=== PATIENT | male | born 1965 | race Caucasian/White ===

== ENCOUNTER 2023-07-01 15:50 | Inpatient (IN) | payer MEDICAID ==
[2023-07-01] MEDS ORDERED: Alum Hydroxide/Mag Hydroxide 30 ML, Lidocaine 2% 15 ML PO ONE ×2 (16:17)
[2023-07-01] MEDS ORDERED: Sodium Chloride 0.9% 1,000 ML IV ONE (16:25)
[2023-07-01] MEDS ORDERED: diphenhydrAMINE 50 MG/ML SDV IVPUSH ONE (16:26)
[2023-07-01] MEDS ORDERED: Ondansetron 4 MG/2 ML SDV IVPUSH ONE (16:26)
[2023-07-01] MEDS ORDERED: Ketorolac 30 MG/ML SDV IVPUSH ONE (16:26)
[2023-07-01] MEDS ORDERED: Acetaminophen 500 MG Tab PO ONE (16:34)
[2023-07-01] MEDS ORDERED: Acetaminophen 500 MG Tab ONE (16:35)
[2023-07-01 16:39] LABS: BLOOD UREA NITROGEN,BUN 15 mg/dL (7-18); CALCIUM 9.8 mg/dL (8.6-10.2); CARBON DIOXIDE,CO2 31 mmol/L (21-32); CHLORIDE,CL 97 mmol/L (100-110); ESTIMATED GFR 88 mL/min (>60); GLUCOSE RANDOM 101 mg/dL (80-116); POTASSIUM,K 4.5 mmol/L (3.5-5.3); SODIUM,NA 135 mmol/L (135-145)
[2023-07-01 16:45] LABS: HEMATOCRIT 48.7 % (38.3-50.1); HEMOGLOBIN 16.6 g/dL (12.9-17.7); MEAN CORPUSCULAR HEMOGLOBIN 31.4 pg (27.0-33.3); MEAN CORPUSCULAR HGB CONC 34.1 g/dL (28.7-35.3); MEAN CORPUSCULAR VOLUME 92.3 fL (80.8-98.7); MEAN PLATELET VOLUME 8.2 fL (6.7-11.0); PLATELET COUNT,PLT 236 x10(3)uL (117-477); RED BLOOD CELL COUNT 5.28 x10(6)uL (3.90-5.90); RED CELL DISTRIBUTION WIDTH 14.1 % (12.4-15.0); WHITE BLOOD CELL COUNT,WBC 6.3 x10-3/uL (3.2-10.1)
[2023-07-01 16:50] LABS: A/G RATIO 0.6; ALKALINE PHOSPHATASE 224 IU/L (56-112); BILIRUBIN TOTAL 2.8 mg/dL (0.1-1.3); PROTEIN TOTAL,TP 7.9 g/dL (6.0-8.0)
[2023-07-01 16:51] LABS: ALANINE AMINOTRANSFERASE,ALT 307 U/L (12-36); ASPARTATE AMNIOTRANSFERASE,AST 469 IU/L (5-25); TROPONIN I < 4.0 pg/mL (4.0-60.3)
[2023-07-01 16:52] LABS: C-REACTIVE PROTEIN 6.83 mg/dL (<0.33); LIPASE > 1500 U/L (16-77)
[2023-07-01] MEDS ORDERED: Iopamidol 755 Mg/ML 100 ML Bottle IV ONE (17:00)
[2023-07-01 17:08] LABS: INFLUENZA A NAA NEGATIVE (NEGATIVE); INFLUENZA B NAA NEGATIVE (NEGATIVE); RESPIRATORY SYNCYTIAL VIR NAA NEGATIVE (NEGATIVE)
[2023-07-01 17:12] LABS: LYMPHOCYTES PERCENT MAN 5 % (13-37); MONOCYTES PERCENT MAN 3 % (4-12); SEG NEUTROPHILS PERCENT MAN 92 % (46-82)
[2023-07-01 17:14] LABS: BILIRUBIN,URINE NEGATIVE (NEGATIVE); GLUCOSE,URINE NORMAL (NORMAL); KETONES,URINE NEGATIVE (NEGATIVE); LEUKOCYTE ESTERASE,URINE NEGATIVE (NEGATIVE); NITRITE,URINE NEGATIVE (NEGATIVE); OCCULT BLOOD,URINE NEGATIVE (NEGATIVE); PROTEIN,URINE NEGATIVE (NEGATIVE); UROBILINOGEN,URINE 4 mg/dL (NEGATIVE)
[2023-07-01 17:22] LABS: APPEARANCE,URINE CLEAR (CLEAR); BACTERIA,URINE FEW (NS); COLOR,URINE YELLOW (YELLOW); RBC,URINE 0-5 (0-5); SQUAMOUS EPITHELIAL CELLS,UR FEW (NS,R,O); WBC,URINE 0-5 (0-5)
[2023-07-01 17:51] LABS: CORONAVIRUS COVID-19 NAA NEGATIVE (NEGATIVE)
[2023-07-01 17:56] LABS: BILIRUBIN DIRECT 2.12 mg/dL (0.10-0.20); BILIRUBIN INDIRECT 0.7 mg/dL (0.0-1.0); BILIRUBIN TOTAL 2.8 mg/dL (0.1-1.3)
[2023-07-01] MEDS ORDERED: Sodium Chloride 0.9% 1,000 ML IV SCH (18:00)
[2023-07-01] MEDS ORDERED: Morphine 4 MG/ML VIAL IVPUSH ONE (18:48)
[2023-07-01] MEDS ORDERED: Morphine 2 MG/ML SYRINGE IVPUSH ONE (18:53)
[2023-07-01] MEDS: D5 1/2 NS w/ 20 mEq/L KCl 1,000 ML IV SCH (19:01)
[2023-07-01] MEDS ORDERED: Zolpidem 10 MG Tab PO PRN (19:11)
[2023-07-01] MEDS ORDERED: Morphine 2 MG/ML SYRINGE IVPUSH PRN (19:11)
[2023-07-01] MEDS ORDERED: Ondansetron 4 MG/2 ML SDV IV PRN (19:11)
[2023-07-01] MEDS ORDERED: Pantoprazole 40 MG Vial IVPUSH ONE (19:11)
[2023-07-01] MEDS ORDERED: Sodium Chloride 0.9% 10 ML Syringe FLUSH PRN (20:00)
[2023-07-01] MEDS: Ketorolac 30 MG/ML SDV IVPUSH SCH (21:36)
[2023-07-01] MEDS: Enoxaparin 40 MG/0.4 ML Syringe SUBCUT SCH (21:36)
[2023-07-01] MEDS ORDERED: Ketorolac 30 MG/ML SDV IM SCH (22:30)
[2023-07-02] MEDS: Ketorolac 30 MG/ML SDV IVPUSH SCH ×3 (03:33→16:30)
[2023-07-02] MEDS: D5 1/2 NS w/ 20 mEq/L KCl 1,000 ML IV SCH (03:35)
[2023-07-02 06:23] LABS: HEMATOCRIT 41.3 % (38.3-50.1); MEAN CORPUSCULAR HEMOGLOBIN 31.5 pg (27.0-33.3); MEAN CORPUSCULAR VOLUME 92.7 fL (80.8-98.7); MEAN PLATELET VOLUME 8.5 fL (6.7-11.0); PLATELET COUNT,PLT 176 x10(3)uL (117-477); RED BLOOD CELL COUNT 4.46 x10(6)uL (3.90-5.90); WHITE BLOOD CELL COUNT,WBC 11.1 x10-3/uL (3.2-10.1)
[2023-07-02 06:29] LABS: BLOOD UREA NITROGEN,BUN 12 mg/dL (7-18); CALCIUM 8.5 mg/dL (8.6-10.2); CARBON DIOXIDE,CO2 30 mmol/L (21-32); CHLORIDE,CL 105 mmol/L (100-110); GLUCOSE RANDOM 119 mg/dL (80-116); MAGNESIUM 1.6 mg/dL (1.8-2.5); POTASSIUM,K 4.6 mmol/L (3.5-5.3); SODIUM,NA 139 mmol/L (135-145)
[2023-07-02 06:47] LABS: EST CRCL DRUG DOSING (CG) 78.85 mL/min; ESTIMATED GFR 88 mL/min (>60)
[2023-07-02 06:58] LABS: BAND PERCENT MAN 10 % (0-6); LYMPHOCYTES PERCENT MAN 7 % (13-37); METAMYELOCYTE PERCENT MAN 2 % (0-0); MONOCYTES PERCENT MAN 3 % (4-12); SEG NEUTROPHILS PERCENT MAN 78 % (46-82)
[2023-07-02] MEDS ORDERED: Magnesium Sulfate/Water 2 GM in Premix Bag 1 BAG IV ONE (08:26)
[2023-07-02 09:02] LABS: ALBUMIN 2.2 g/dL (3.5-5.2); BILIRUBIN DIRECT 3.46 mg/dL (0.10-0.20); BILIRUBIN TOTAL 4.2 mg/dL (0.1-1.3); PROTEIN TOTAL,TP 6.2 g/dL (6.0-8.0)
[2023-07-02] MEDS: Pantoprazole 40 MG Vial IVPUSH SCH (09:12)
[2023-07-02 10:33] LABS: INR 1.29 (1.00-1.24); PROTHROMBIN TIME 13.2 sec (9.0-11.1)
[2023-07-02] MEDS: Sodium Chloride 0.9% 1,000 ML IV SCH (10:50)
[2023-07-02] MEDS ORDERED: Nicotine 14 MG/24 Hr Patch TRDERM ONE (11:47)
[2023-07-02] MEDS: Enoxaparin 40 MG/0.4 ML Syringe SUBCUT SCH (21:47)
[2023-07-02] MEDS: Ketorolac 30 MG/ML SDV IVPUSH PRN (22:14)
[2023-07-03] MEDS: Sodium Chloride 0.9% 1,000 ML IV SCH ×2 (00:24→08:50)
[2023-07-03] MEDS: Ketorolac 30 MG/ML SDV IVPUSH PRN ×3 (05:47→22:01)
[2023-07-03 06:31] LABS: BASOPHILS PERCENT AUTO 0.5 % (0.3-3.8); EOSINOPHILS ABSOLUTE AUTO 0.1 x10-3/uL (0.0-0.6); HEMATOCRIT 37.8 % (38.3-50.1); HEMOGLOBIN 13.2 g/dL (12.9-17.7); LYMPHOCYTES ABSOLUTE AUTO 0.9 x10-3/uL (0.5-4.5); LYMPHOCYTES PERCENT AUTO 12.2 % (15.8-45.3); MEAN CORPUSCULAR HEMOGLOBIN 32.2 pg (27.0-33.3); MEAN CORPUSCULAR HGB CONC 34.9 g/dL (28.7-35.3); MEAN CORPUSCULAR VOLUME 92.4 fL (80.8-98.7); MEAN PLATELET VOLUME 8.3 fL (6.7-11.0); MONOCYTES ABSOLUTE AUTO 0.4 x10-3/uL (0.0-1.2); MONOCYTES PERCENT AUTO 5.2 % (5.5-15.2); NEUTROPHILS ABSOLUTE AUTO 6.1 x10-3/uL (1.7-6.9); NEUTROPHILS PERCENT AUTO 81.1 % (40.3-71.8); PLATELET COUNT,PLT 174 x10(3)uL (117-477); RED BLOOD CELL COUNT 4.09 x10(6)uL (3.90-5.90); RED CELL DISTRIBUTION WIDTH 14.6 % (12.4-15.0); WHITE BLOOD CELL COUNT,WBC 7.6 x10-3/uL (3.2-10.1)
[2023-07-03 06:39] LABS: BILIRUBIN DIRECT 1.4 mg/dL (0.10-0.20); BILIRUBIN INDIRECT 0.6 mg/dL (0.0-1.0)
[2023-07-03 06:45] LABS: A/G RATIO 0.5; ALBUMIN 1.9 g/dL (3.5-5.2); ALKALINE PHOSPHATASE 120 IU/L (56-112); BLOOD UREA NITROGEN,BUN 10 mg/dL (7-18); BUN/CREATININE RATIO 16.7 (9-20); CALCIUM 8.2 mg/dL (8.6-10.2); CARBON DIOXIDE,CO2 25 mmol/L (21-32); CHLORIDE,CL 103 mmol/L (100-110); CREATININE 0.6 mg/dL (0.70-1.30); EST CRCL DRUG DOSING (CG) 131.42 mL/min; ESTIMATED GFR 113 mL/min (>60); GLUCOSE RANDOM 81 mg/dL (80-116); POTASSIUM,K 3.4 mmol/L (3.5-5.3); PROTEIN TOTAL,TP 5.7 g/dL (6.0-8.0); SODIUM,NA 134 mmol/L (135-145)
[2023-07-03 06:53] LABS: ALANINE AMINOTRANSFERASE,ALT 244 U/L (12-36)
[2023-07-03 06:54] LABS: ASPARTATE AMNIOTRANSFERASE,AST 206 IU/L (5-25)
[2023-07-03] MEDS: Pantoprazole 40 MG Vial IVPUSH SCH (08:53)
[2023-07-03] MEDS: NS + KCl 20mEq/L 1,000 ML IV SCH (17:03)
[2023-07-03] MEDS: Enoxaparin 40 MG/0.4 ML Syringe SUBCUT SCH (21:33)
[2023-07-04] MEDS: NS + KCl 20mEq/L 1,000 ML IV SCH (02:37)
[2023-07-04] MEDS: Ketorolac 30 MG/ML SDV IVPUSH PRN ×2 (05:40→12:18)
[2023-07-04 06:37] LABS: BASOPHILS ABSOLUTE AUTO 0.1 x10-3/uL (0.0-0.3); BASOPHILS PERCENT AUTO 0.7 % (0.3-3.8); EOSINOPHILS ABSOLUTE AUTO 0.1 x10-3/uL (0.0-0.6); EOSINOPHILS PERCENT AUTO 0.9 % (0.1-6.8); HEMATOCRIT 38.4 % (38.3-50.1); HEMOGLOBIN 13.4 g/dL (12.9-17.7); LYMPHOCYTES ABSOLUTE AUTO 0.8 x10-3/uL (0.5-4.5); LYMPHOCYTES PERCENT AUTO 11.8 % (15.8-45.3); MEAN CORPUSCULAR HEMOGLOBIN 32.3 pg (27.0-33.3); MEAN CORPUSCULAR HGB CONC 34.9 g/dL (28.7-35.3); MEAN CORPUSCULAR VOLUME 92.6 fL (80.8-98.7); MEAN PLATELET VOLUME 7.8 fL (6.7-11.0); MONOCYTES ABSOLUTE AUTO 0.4 x10-3/uL (0.0-1.2); MONOCYTES PERCENT AUTO 5.2 % (5.5-15.2); NEUTROPHILS ABSOLUTE AUTO 5.8 x10-3/uL (1.7-6.9); NEUTROPHILS PERCENT AUTO 81.4 % (40.3-71.8); PLATELET COUNT,PLT 209 x10(3)uL (117-477); RED BLOOD CELL COUNT 4.15 x10(6)uL (3.90-5.90); RED CELL DISTRIBUTION WIDTH 14.8 % (12.4-15.0); WHITE BLOOD CELL COUNT,WBC 7.1 x10-3/uL (3.2-10.1)
[2023-07-04 06:54] LABS: A/G RATIO 0.5; ALKALINE PHOSPHATASE 121 IU/L (56-112); ASPARTATE AMNIOTRANSFERASE,AST 83 IU/L (5-25); BILIRUBIN DIRECT 0.64 mg/dL (0.10-0.20); BILIRUBIN INDIRECT 0.6 mg/dL (0.0-1.0); BILIRUBIN TOTAL 1.2 mg/dL (0.1-1.3); BLOOD UREA NITROGEN,BUN 7 mg/dL (7-18); CALCIUM 8.4 mg/dL (8.6-10.2); CARBON DIOXIDE,CO2 24 mmol/L (21-32); CHLORIDE,CL 104 mmol/L (100-110); CREATININE 0.7 mg/dL (0.70-1.30); EST CRCL DRUG DOSING (CG) 112.64 mL/min; ESTIMATED GFR 107 mL/min (>60); GLUCOSE RANDOM 77 mg/dL (80-116); MAGNESIUM 1.7 mg/dL (1.8-2.5); POTASSIUM,K 3.6 mmol/L (3.5-5.3); SODIUM,NA 135 mmol/L (135-145)
[2023-07-04 06:58] LABS: ALANINE AMINOTRANSFERASE,ALT 163 U/L (12-36)
[2023-07-04] MEDS: Pantoprazole 40 MG Vial IVPUSH SCH (09:17)
[2023-07-04] MEDS ORDERED: Magnesium Sulfate/Water 2 GM in Premix Bag 1 BAG IV ONE (11:57)
[2023-07-06 18:02] LABS: HEPATITIS A ANTIBODY, IGM Negative (Negative); HEPATITIS B CORE ANTIBODY, IGM Negative (Negative); HEPATITIS B SURFACE ANTIGEN Negative (Negative); HEPATITIS C AB CIA INTERP Negative (Negative); HEPATITIS C ANTIBODY CIA INDEX 0.23 IV
== END 2023-07-04 15:05 | disposition home or self-care (01) | DRG 440 ==
LOC: FB.ED 15:50 → FB.MS 18:45
PROVIDERS: ADMIT Family Medicine; ATTEND Family Medicine
DX: K85.20 Alcohol induced acute pancreatitis without necrosis or infection (principal); F17.210 Nicotine dependence, cigarettes, uncomplicated; M19.90 Unspecified osteoarthritis, unspecified site; F41.9 Anxiety disorder, unspecified; F32.A Depression, unspecified; K70.10 Alcoholic hepatitis without ascites; K29.00 Acute gastritis without bleeding; K21.00 Gastro-esophageal reflux disease with esophagitis, without bleeding; E88.09 Other disorders of plasma-protein metabolism, not elsewhere classified; F10.90 Alcohol use, unspecified, uncomplicated; E83.42 Hypomagnesemia; Z79.899 Other long term (current) drug therapy; Z98.890 Other specified postprocedural states
CPT/HCPCS: 0241U; 36415; 74177; 76705; 80048; 80053; 80061; 80074; 80076; 81001; 82247; 82248; 83690; 83735; 84484; 85025; 85610; 86140; 93005; 93010; 99222; 99232; 99238; 99285; A9270-GY; C9113; J1650; J1885; J2270; J2405; J3475; J3480; J3490; J7030; Q9967